=== PATIENT | male | born 1990 | race Caucasian/White ===

== ENCOUNTER 2024-12-15 03:01 | Day surgery (SDC) | payer BC, SELFPAY ==
[2024-12-09 12:48] VITALS: BMI 34.8
--- NOTE | 2024-12-09 12:55 | PC.NURSE ---
Report to the Outpatient Waiting Room, entrance under the green pavilion located off [facility], at time __11:00am on date __12/15/24 . Planned Procedure Time: __1:00pm .? Time changes happen often and if your time is changed the preop area will call you the afternoon before. - You and your visitor will be asked to self-screen and do not enter if you have any COVID symptoms. Please call surgeon if you need to reschedule. - A mask is optional within the hospital at this time. Patients may have clear liquids (water, carbonated beverages, clear teas, apple juice) until 3 hours prior to surgery with a maximum of 20 ounces. - No food from midnight until time of surgery and no smoking, or chewing tobacco (or any form of nicotine). No chewing gum, candy or mints. Take only the following medications with a SIP of water on the morning of surgery: ___None DO NOT STOP ANY OF YOUR OTHER PRESCRIPTION MEDICATIONS PRIOR TO SURGERY EXCEPT THE FOLLOWING Hold all vitamins and supplements for 3 days per anesthesiologist. Date of last dose is 12/11/24 Medications to discontinue per physician None Date to take last dose None Please no make-up, nail rwandan, hairspray, perfume, deodorant, or body powder the day of surgery.? No jewelry (including any body piercings) or valuables the day of surgery, leave them at home.? Please take a shower or bath the night before, or the morning of, surgery with an antibacterial soap.? Wear comfortable, loose fitting clothing.? - Jewelry must be removed prior to entering the operating room.? Rings and piercings that are not removed may be cut off. - The hospital will not accept responsibility for valuables.? - Please leave all valuables, including medications, at home the day of surgery. If you are going home after surgery, a licensed commercial relief driver must drive you home.? - NO public transportation without another adult if you receive anesthesia. - We recommend that an adult stay with you for 24 hours following discharge. - We also recommend that you do not drive, make important decision, drink alcoholic beverages, or take any drugs that were not prescribed by your health care provider for at least 24 hours after your discharge time. Follow any additional instructions given to you from your surgeon. Telephone instructions given to __Patient and asked if any additional questions and then verbalized understanding. Patient advised to call surgeon office or pre surgery nurse liaison [phone] if any additional questions.
[2024-12-15] VITALS (9 sets, daily range): BP systolic 99–115; BP diastolic 65–79; PULSE 68–86; RESP 12–20; TEMP 36.1–36.2; O2SAT 95–99
--- OUTSIDE RECORDS SUMMARY | 2024-12-15 03:05 | XMS_ITS | Encounter Summary ---
Author Organization [facility] Care Team Providers Care Referral Rn Name Role Phone Trey Yin PAC Primary Care Provider [phone] Julianna Fox APRN, [facility] Unavailable Emeterio Koch PAC Unavailable [phone] Encounter Details Date Type Department Care Team (Latest Contact Info) Description 12/14/2024 Travel Social History Tobacco Use Types Packs/Day Years Used Date Smoking Tobacco: Never Smokeless Tobacco: Never Alcohol Use Standard Drinks/Week Comments Never 0 (1 standard drink = 0.6 oz pur e alcohol) [facility] Utilities Answer Date Recorded In the past 12 months has e electric, gas, oil, or water company threatened to shut off services in your home? No 04/13/2024 Social Connection and Isolat ion Panel [NHANES] Answer Date Recorded In a typical week, how many times do you talk on the phone with family, friends, or neighbors? More than three times a week 04/13/2024 How often do you get togethe r with friends or relatives? Three times a week 04/13/2024 How often do you attend chur ch or sikhism services? More than 4 times per year 04/13/2024 Do you belong to any clubs o r organizations such as druze groups, unions, fraternal or athletic groups, or school groups? Yes 04/13/2024 How often do you attend meet ings of the clubs or organizations you belong to? More than 4 times per year 04/13/2024 Are you , , di vorced, , never , or living with a partner? 04/13/2024 AUDIT-C Answer Date Recorded Q1: How often do you have a drink containing alcohol? Never 04/13/2024 Q2: How many drinks containi ng alcohol do you have on a typical day when you are drinking? Patient does not drink Q3: How often do you have si x or more drinks on one occasion? Never 04/13/2024 Overall Financial Resource Strain (CARDIA) Answe r Date Recorded How hard is it for you to pa y for the very basics like food, housing, medical care, and heating? Somewhat hard 04/13/2024 PHQ-2 Answer Date Recorded Total Score - Questions 1-9 18 10/2024 [facility] - Occupational Stress Questionnaire Answer Date Recorded Do you feel stress - tense, restless, nervous, or anxious, or unable to sleep at night because your mind is troubled all the time - these days? Only a little 04/13/2024 Exercise Vital Sign Answer Date Recorde d On average, how many days pe r week do you engage in moderate to strenuous exercise (like a brisk walk)? 4 days 04/13/2024 On average, how many minutes do you engage in exercise at this level? 30 min 04/13/2024 Hunger Vital Sign Answer Date Recorded Within the past 12 months, y ou worried that your food would run out before you got the money to buy more. Never true 04/13/20 24 Within the past 12 months, t he food you bought just didn't last and you didn't have money to get more. Never true 04/13/2024 PRAPARE - Transportation Answer Date Re corded In the past 12 months, has l ack of transportation kept you from medical appointments or from getting medications? No 08/2023 In the past 12 months, has l ack of transportation kept you from meetings, work, or from getting things needed for daily living? No 04/13/2024 Housing Stability Vital Sign Answer Reymundo e Recorded In the last 12 months, was t here a time when you were not able to pay the mortgage or rent on time? Yes 04/13/2024 Number of Times Moved in the Last Year Not on fi le 04/13/2024 At any time in the past 12 m [facility], were you homeless or living in a group home (including now)? No 04/13/2024 Education Answer Date Recorded What is the highest level of school you have completed or the highest degree you have received? Some college, no degree 09/07/2022 Sexually Active Control Partners Comments Yes None Sex and Gender Information Value Date Recorded Sex Assigned at Not on file Legal Sex Male 11:03 PM CDT Gender Identity Not on file Sexual Orientation Not on file documented as of this encounter Functional Status * Question Answer Date of Assessment Author Little interest or pleasure in doing things Nearly every day 12/14/2024 4:00 PM CDT Jenni Palacios LCSW Feeling down, depressed, or hopeless Nearly every day 12/14/2024 4:00 PM CDT Jenni Palacios LC SW * Over the past 2 weeks, how often have you been bothered by any of the following problems? Question Answer Date of Assessment Author Patient Health Questionnaire -2 Score 6 12/14/2024 4:00 PM CDT Jenni Palacios LC SW documented as of this encounter Plan of Treatment Upcoming Encounters Date Type Department Care Team (Latest Contact Info) Description 12/26/2024 1:45 PM CDT [facility] [place] [address] [place] [address] Trey Yin PAC [address] [place] [address] 12/29/2024 4:15 PM CDT [facility] [address] [place] [phone] Jenni Palacios LCSW [address] [place] [address] Discharge Disposition: Discharged to home or Selfcare documented as of this encounter Visit Diagnoses Not on filedocumented in this encounter Additional Health Concerns Assessment Noted Time PHQ-9 Depression Total Score: 18 025 4:00 PM CDT documented as of this encounter Care Teams Referral Rn Relationship Specialty Start Date End Date Trey Yin, PAC [address] [place] [phone] PCP - General Physician Auxiliary Operator 06/04/22 Julianna Fox APRN, [facility] [address] [place] [address] Nurse Practitioner Advanced Practice Nurse 03/11/23 Emeterio Koch, PAC [address] [place] [address] Physician Auxiliary Operator Physician Auxiliary Operator 05/12/24 documented as of this encounter
--- OUTSIDE RECORDS SUMMARY | 2024-12-15 03:05 | XMS_ITS | Encounter Summary ---
Author Organization [facility] Address [address] [place] [address] Care Team Providers Care Vibratory Pile Driver Name Role Phone Unavailable Primary Care Provider Unavailabl e Encounter Details Date Type Department Care Team (Late st Contact Info) Description 11/25/2019 Lab Requisition [facility] [address] [place] [address] Rivera Murillo MD Cough Social History Tobacco Use Types Packs/Day Years Used Date Smoking Tobacco: Never Assessed Sex and Gender Information Value Date Recorded Sex Assigned at Not on file Legal Sex Male 5:16 PM CDT Gender Identity Not on file Sexual Orientation Not on file documented as of this encounter Plan of Treatment Not on file documented as of this encounter Procedures Procedure Name Priority Date/Time Associated Diagnosis Comments SARS-COV-2 (COVID-19) IN HOUSE Routine 11/25/2019 11:30 AM CDT Cough documented in this encounter Results * SARS-COV-2 (COVID-19) IN HOUSE (11/25/2019 11:30 AM CDT) COVID-19 PCR Not detected Not detected, Invalid 11/26/2019 6:30 AM CDT [facility] Microbiology SPECIMEN FROM NASOPHARYNGEAL STRUCTURE / Unknown Collection / Unknown 11/25/2019 11:30 AM CDT 11/25/2019 7:39 PM CDT Narrative [facility] - 11/26/2019 6:30 AM CDT This Real Time RT-PCR assay was developed and its performance characteristics determined by [facility]. This test has been authorized by the Food and Drug administration (FDA)under an Emergency Use Authorization (EUA). This test has been validated in accordance with the FDA's guidance document Policy for Diagnostic Testing in Laboratories Certified to perform High Complexity Testing under CLIA prior to Emergency Use Authorization for Coronavirus Disease-2019 during the Public Health Emergency issued on September 10, 2019. FDA independent review of this validation is pending. This test is only authorized for the duration of time the declaration that circumstances exist justifying the authorization of emergency use of in vitro diagnostic tests for detection of SARS-CoV-2 virus and/or diagnosis of COVID-19 infection under section 564(b)(1) of the Act, 21 U.S.C 360bbb-3 (b)(1), unless the authorization is terminated or revoked sooner. us Rivera Murillo MD LAB - MICROBIOLOGY ORDERABL ES Final Result [facility] [address] [place], [place] [address], [facility] [phone] documented in this encounter Visit Diagnoses Diagnosis Cough documented in this encounter Additional Health Concerns Infection Onset Date Last Indicated Resolved Time COVID-19 Under Investigation 12/09/2019 12/09/2019 12/10/2019 6:40 AM CDT documented as of this encounter
--- OUTSIDE RECORDS SUMMARY | 2024-12-15 03:05 | XMS_ITS | Referral Summary ---
Author Organization [address] Address [address] [place] [phone] Care Team Providers Care Internal Audit Manager Name Role Phone Evangelista hCester Primary Care Provider [phone] Allergies No known active allergies Medications benzonatate (TESSALON) 100 mg capsuleIndicati ons:Cough Take 1 capsule (100 mg total) by mouth every 8 (eight) hours 21 capsule 05/22/2020 Active Active Problems No known active problems Social History Tobacco Use Types Packs/Day Years Used Date Smoking Tobacco: Never Tobacco Cessation:Counseling Given: No Alcohol Use Standard Drinks/Week Comments Never 0 (1 standard drink = 0.6 oz pur e alcohol) AUDIT-C Answer Date Recorded Q1: How often do you have a drink containing alc ohol? Never 05/01/2020 Average Number of Drinks Not on file 020 Frequency of Binge Drinking Not on file 04/13 Sex and Gender Information Value Date Recorded Sex Assigned at Not on file Legal Sex Male 3:14 PM HOLTER TECHNICIAN Gender Identity Not on file Sexual Orientation Not on file Last Filed Vital Signs Vital Sign Reading Time Taken Comments Blood Pressure 116/79 05/22/2020 1:00 PM HOLTER TECHNICIAN Pulse 90 05/22/2020 1:00 PM HOLTER TECHNICIAN Temperature 37 C (98.6 F) 05/22/2020 1:00 PM HOLTER TECHNICIAN Respiratory Rate 16 05/22/2020 11:45 AM HOLTER TECHNICIAN Oxygen Saturation 97% 05/22/2020 1:00 PM HOLTER TECHNICIAN Inhaled Oxygen Concentration - - Weight 113.4 kg (250 lb) 05/22/2020 11:45 AM HOLTER TECHNICIAN Height 175.3 cm (5' 9) 05/22/2020 11:45 AM HOLTER TECHNICIAN Body Mass Index 36.92 05/22/2020 11:45 AM HOLTER TECHNICIAN Plan of Treatment Not on file Insurance [facility] Care Teams Internal Audit Manager Relationship Specialty Start Date End Date Evangelista Cehster PA [address] [facility] [address] [place] [address] PCP - General 05/01/20
--- OUTSIDE RECORDS SUMMARY | 2024-12-15 03:05 | XMS_ITS | Clinical Summary ---
Author Organization [facility] Address [address] [place] [address] Care Team Providers Care Rock Breaker Name Role Phone Unavailable Primary Care Provider Unavailabl e Source Comments [facility],non-owned Affiliates and Associated Physician Practices is amultiple site organization consisting of ambulatory clinics and hospital sitesin [place], [place], [place] and [place]. This disclosure is being madepursuant to the Care Everywhere program and may not contain all information available regarding this patient. Last updated 18.[employer] Social History Tobacco Use Types Packs/Day Years Used Date Smoking Tobacco: Never Assessed Sex and Gender Information Value Date Recorded Sex Assigned at Not on file Legal Sex Male 5:16 PM CDT Gender Identity Not on file Sexual Orientation Not on file Plan of Treatment Health Maintenance Due Date Last Done Comments HIV SCREENING 2005 HEPATITIS C SCREENING 06/04/2008 DTAP/TDAP/TD VACCINES (1 - Tdap) 2009 HEPATITIS B VACCINE (1 of 3 - 19+ 3-dose series) 2009 COVID-19 VACCINE ( - 2023-2 5 season) 2024 DEPRESSION SCREENING 07/13/2024 INFLUENZA VACCINE (Season Ended) 2025 ZOSTER VACCINE (1 of 2) 2040 HIB VACCINE Aged Out No longer eligi ble based on patient's age to complete this topic HPV VACCINE Aged Out No longer eligi ble based on patient's age to complete this topic MENINGOCOCCAL (Group B) VACC INE SHARED DECISION-MAKING Aged Out No longer eligibl e based on patient's age to complete this topic MENINGOCOCCAL GROUPS A/C/Y/W VACCINE Aged Out No longer eligible b ased on patient's age to complete this topic PNEUMOCOCCAL VACCINE Aged Out No long er eligible based on patient's age to complete this topic Insurance ANTHEM ANTHEM ANTHEM ANTHEM ANTHEM ANTHEM
--- OUTSIDE RECORDS SUMMARY | 2024-12-15 03:05 | XMS_ITS | Encounter Summary ---
Author Organization [facility] Address [address] [place] [address] Phone Care Team Providers Care Zigzag Appliquer Name Role Phone Trey Yin PAC Primary Care Provider [phone] Julianna Fox APRN, BLOCK HANDLER Unavailable Emeterio Koch PAC Unavailable [phone] Reason for Visit * Reason Comments Patient Intake * Auth/Cert (Routine) Specialty Diagnoses / Procedures Referred By Alexa t Referred To Contact Referral ID Status Reason Start Date Expiration Date Visits Re quested Visits Authorized [id number] 1 1 Encounter Details Date Type Department Care Team (Latest Contact Info) Description 12/14/2024 4:00 PM CDT Outpatient Clinic [facility] [address] [place] [address] Krystin Landry, [facility] [address] [place] [address] Moderate episode of recurrent major depressive disorder (HCC) Discharge Disposition: Discharged to home or Selfcare Social History Tobacco Use Types Packs/Day Years Used Date Smoking Tobacco: Never Smokeless Tobacco: Never Alcohol Use Standard Drinks/Week Comments Never 0 (1 standard drink = 0.6 oz pur e alcohol) [facility] Utilities Answer Date Recorded In the past 12 months has [employer], gas, oil, or water company threatened to [...] often do you attend chur ch or christian services? More than 4 times per year 04/13/2024 Do you belong to any clubs o r organizations such as restoration groups, unions, fraternal or athletic groups, or [...] Recorded Total Score - Questions 1-9 18 06/0 10/2024 [facility] Answer Date Recorded [...] any time in the past 12 m [facility], were you homeless or living in a mcc (including now)? No 04/13/2024 Education Answer Date [...] Nearly every day 12/14/2024 4:00 PM CDT Krystin Landry LCSW Feeling down, depressed, or hopeless Nearly every day 12/14/2024 4:00 PM CDT Krystin Landry LC SW * Over the past 2 weeks, how often have you been bothered by any of the following problems? Question Answer Date of Assessment Author Patient Health Questionnaire -2 Score 6 12/14/2024 4:00 PM CDT Krystin Landry LC SW documented as of this encounter Patient Instructions * Patient Instructions* Krystin Landry LCSW - 12/14/2024 4:00 PM CDT Crisis Resources In-Home, Mental Health Crisis Assessment [facility] Crisis Intervention Team?[phone] ([facility] Crisis Intervention Team?.. [phone] ([place]) [facility] Available for individual, family, or friend for in-home assessment of mental health issues Crisis Stabilization- Residential 24-hour or short-term supervised care at a facility. Available for persons 18 and older, who are experiencing a mental health crisis and do not need hospitalization. [facility] provides 24-hour short-term supervised care for persons aged 18 years and older experiencing an acute psychiatric crisis that does not require hospitalization. The average length of stay is 14 days. Admission to our crisis unit is voluntary; we only accept those individuals who choose to come to the unit. The facility is not prepared to work with persons who may be acutelysuicidal or homicidal or who are experiencing serious medical problems or complications. The unit is staffed with nurses and behavioral health technicians and is not a hospital. During their stay on the unit, clients spend time in groups that meet four or more times a day. Thegroups provide education on topics helpful to individuals in crisis and clients are expected to attend and to participate actively. [facility] will provide a safe and supportive environment conducive to achieving stability. No alcohol or drugs are allowed in the unit. All medications are dispensed by [facility] nurses at appropriate times. No visitors are allowed on the unit but there is a phone available for clients to use and make calls. Persons may refer themselves for crisis residential/stabilization services and may be referred by hospitals, police departments, mental health agencies, social service agencies, and families. [facility] ?.....? .[phone] [facility] ?.???..[phone] Brief Crisis Phone Counseling Behavioral Health Response (BHR)?[phone] / [phone] ([place]) CARES Line (Medicaid patients) ?..[phone] If non-Medicaid patient, the caller will be referred to a local service provider Emergency Sites for Mental Health Assessment and Treatment Behavioral Health Urgent Care [facility]gent [facility] (5yrs old to adult) [address] [facility] [address] [place] [address] Thursday - Thursday 9:00 am - 7:00 pm *Last patient seen at 6:00 pm Hospitals with Inpatient Psychological Services for Children and/or Adolescents and Adults [facility] (also has substance use treatment for adults) (adolescent, adult) [address] [place] [address] [facility] (children, adolescents, adult) after business hours [phone] [place] [address]. [facility] Behavioral Health (children, adolescents, adult) [address] [place] [address] [facility] (also has substance use treatment for adults) (children, adolescents, adult) Phone: or [phone] [place] [address] [facility] (adolescent, adult) Phone: or [phone] [address] [place] [address] Hospitals with Inpatient Psychological Services for Adults only [facility] (adult, geriatric) [address] [place] [address] [facility] Health (adult) [address] [place] [address] [facility] (adult) Phone: or [phone] [address] [place] [address] [facility] (geriatric only) Phone: or [phone] [address] [place] [address] [facility] (adult, geriatric) [address] Hotline Numbers National Suicide Prevention Hotline: ?..?.3-021-330-TALK (2055) or [address] [place] Sexual Assault Hotline?..?.?5-870-020[facility] (9022) [facility] Sexual Assault Victims Support?..1-690.404.5158 [facility] Child Abuse Hotline?.1-266.521.4763 Domestic Violence Hotline?.?.0-439-386-S DEANNA (6455) [facility] Lifeline?.? Trans Lifeline?.? LGBTQ Partner Abuse & Sexual Assault Line . .1- [phone] [facility] including support for opioids or other substances.? Crisis Text Line???..?.?.? Text the word help to 638721 [facility] Text Line for service referrals.?.?. Text the word help to 717858 [facility]?5-816-932-79 53 [facility] Warmline? 9a-9p/7 days a week [facility] Warmline?..2-516-783-6860 documented in this encounter Progress Notes * Krystin Landry LCSW - 12/14/2024 4:00 PM CDT [facility] INITIAL EVALUATION Name: Slick Quesada Age: 34 y.o. Date of : 1990 Date of service: 12/14/2024 Start time: 4:00 pm End time: 5:00 pm DIAGNOSIS: 1. Moderate episode of recurrent major depressive disorder (HCC) [facility] CLINICAL: PSYCHOTHERAPY-COUNSELING REFERRAL ORDER PRIMARY CARE PHYSICIAN: AAKASH Garcia CHIEF COMPLAINT/PRESENTING PROBLEM: What are the main concerns which brought you to treatment at this time?: Depression: concentration difficulties decreased motivation decreased participation in activities of daily living fatigue/loss of energy loss of interest/pleasure in activities low self esteem/self image mood regulation difficulties negative automatic thoughts/intrusive thoughts recurrent thoughts of /dying sleep difficulties (too much or too little) suicidal ideation Recent examples of current difficulty include: Slick is a 34 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 He has a knee that has been giving him problems and he has been off work from Apr 2024 to Aug 2024; he's went back to work in Aug after some treatment. He is having financial strain as well. Slick says that even though he would never do it, he feels that suicidal thoughts give him relief in thinking that there would be an escape; he describes it somewhat like a fantasy. I am not impulsive. I would not do that to my family. He shared that whenever financial stress occurs, he finds himself thinking about it. He and his have 4 children and have had to give up sports activities because his income has been taking a hit for the last 2 years. MENTAL STATUS EXAMINATION: Orientation: Oriented to person, place, time and situation Appearance: In no apparent distress Behavior: cooperative open Figity Speech: Communicative, spoke clearly in sentences Mood: congruent to situation Affect: appropriate to context Thought Process: Clear and well linked Thought Content: Excessive guilt Perception: No hallucinations Memory: Reported: Short and jail memory intact Attention: Able to focus during the interview Insight/Judgement: Normal insight and judgement FUNCTIONAL ASSESSMENT: Can the patient perform Activities of Daily Living (ADL'S)?: Patient is able to complete ADL's independently Does patient have the ability and the capacity to respond to treatment?: Yes RISK ASSESSMENT: Suicidal Ideation: There is no current suicidal ideation.. -[place]- Suicide Severity Rating Scale: Risk Stratification: Suicide Risk Stratification: Low Suicide Risk Risk Assessment: Suicidal ideation (Most Severe in Past Month): Wish to be Homicidal Ideation: There is no history of homicidal ideation.. Self Harm: No. PSYCHIATRIC/PSYCHOLOGICAL HISTORY: (include any history of behavioral health difficulties, behavioral health treatment, or inpatient hospitalizations) No hospitalizations. Is prescribed Prozac by PCP about weeks ago. PCP is aware of Slick's suicidal thoughts. Previous mental health treatment: No. SOCIAL HISTORY: Current relationship status: Currently living with Self, Spouse, and four children. Will family be involved in treatment? No Social supports, hobbies, and activities: is main support. Slick says he has no friends. Are there any languages other than Egyptian spoken in the home? No Are there any Lutheran or Cultural Considerations that may impact treatment in any way? No FAMILY OF ORIGIN: Parent(s)/Caregiver(s): Biological parents Place of /where raised. [place] Sibling(s): Yes- one brother Family mental health and substance abuse history: Unknown DEVELOPMENTAL HISTORY: Pertinent neurodevelopmental considerations: Attention Deficit/Hyperactivity Disorder COMMUNICATION: Are there any barriers to communication: None Identified EDUCATIONAL/EMPLOYMENT HISTORY: Currently in school? No, highest level of education completed: Some college Currently employed? Yes [employer] HISTORY OF TRAUMA/ABUSE: Are you a current victim or perpetrator of abuse, trauma, or exploitation? Current: No Reported Trauma Past: No Reported Trauma PAST AND CURRENT SUBSTANCE USE: Tobacco: No Alcohol: No Other substances: No Substance use treatment?: No. LEGAL HISTORY: Pertinent legal history: No Does patient have access to firearms?: Yes- Secured FINANCIAL STATUS: The following financial stressors were identified: None SERVICE HISTORY: No DAILY ROUTINE: Sleep: significant daytime fatigue and tired all the time approximate hours of sleep per night?: varies Appetite/Meals: Balanced diet Exercise: Daily Goes to gym TREATMENT RECOMMENDATIONS: Recommendations for initial treatment plan: Return for next available follow up appointment MEDICAL HISTORY: Allergies: No Known Allergies Current medications: Current Outpatient Medications Medication Sig Dispense Refill Ascorbic Acid (VITAMIN C PO) Take by mouth. famotidine (PEPCID) 20 MG Tablet Take 1 Tablet by mouth 2 times daily. 180 Tablet 1 FLUoxetine (PROzac) 10 MG Capsule Take 1 Capsule by mouth daily. 90 Capsule 0 Multiple Vitamin (MULTI-VITAMIN PO) Take by mouth every morning. Probiotic Product (PROBIOTIC DAILY PO) Take by mouth. VITAMIN D PO Take by mouth. No current facility-administered medications for this visit. Medical History: Past Medical History Positives Diagnosis Date Duodenal ulcer Erosive esophagitis GERD (gastroesophageal reflux disease) IBS (irritable bowel syndrome) Vitamin D deficiency Surgical History: Past Surgical History: Procedure Laterality Date COLONOSCOPY N/A 11/28/2019 Procedure: COLONOSCOPY, negative terminal ileum, random RIGHT colon biopsies, SPLENIC FLEXURE POLYP-BIOPSIED,; Surgeon: Joss Bazzi DO; Location: [facility]; Service: Gastroenterology HAND SURGERY Right UPPER GASTROINTESTINAL ENDOSCOPY N/A 12/12/2019 Procedure: EGD, duodenitis with ulcers-biopsies taken, debra test, gastritis, esophagitis-biopsies taken, haital hernia; Surgeon: Joss Bazzi DO; Location: [facility]; Service: Gastroenterology UPPER GASTROINTESTINAL ENDOSCOPY N/A 04/11/2020 Procedure: EGD - HEALED DUODENAL ULCER, HEALED ESOPHAGITIS,; Surgeon: Joss Bazzi DO; Location:[facility]; Service: Gastroenterology History of Head injury? No Any other medical concerns? Knee surgery coming up. Labs: Lab Results Component Value Date WBC 6.02 01/19/2023 RBC 4.38 (L) 01/19/2023 HEMOGLOBIN 13.9 01/19/2023 MCV 94.3 01/19/2023 MCH 31.7 01/19/2023 MCHC 33.7 01/19/2023 PLATELETCNT 270 01/19/2023 RDW 12.0 01/19/2023 LYMPHOCYTES 34.9 01/19/2023 RELEOS 2.5 01/19/2023 RELBAS 0.7 01/19/2023 ANC 3.20 01/19/2023 MONOCYTES 0.53 01/19/2023 EOSINOPHILS 0.15 01/19/2023 BASOPHILS 0.04 01/19/2023 Lab Results Component Value Date SODIUM 139 01/19/2023 POTASSIUM 4.0 01/19/2023 CHLORIDE 102 01/19/2023 CO2VEN 25 01/19/2023 ANIONGAP 16.0 01/19/2023 GLUCOSE 102 (H) 01/19/2023 BUN 9 01/19/2023 CREATININE 1.02 01/19/2023 TOTALPROTEIN 7.4 01/19/2023 ALBUMIN 4.4 01/19/2023 CALCIUM 9.4 01/19/2023 TBIL 0.3 01/19/2023 SGPTALT 43 (H) 01/19/2023 ALKALINEPHO 93 01/19/2023 GFRNA >60 01/19/2023 GFRA >60 01/19/2023 No results found for: RPR Lab Results Component Value Date TSH 1.190 07/11/2020 No results found for: ETHANOL No results found for: SALICYLATE No results found for: ACETAMINOPHE KRYSTIN LANDRY LCSW documented in this encounter Plan of Treatment Upcoming Encounters Date Type Department Care Team (Latest Contact Info) Description 12/26/2024 1:45 PM CDT Office Visit [facility] - [place] [address] [place] [address] Trey Yin PAC [address] [place] [address] 12/29/2024 4:15 PM CDT Outpatient Clinic Visit [facility] Behavioral Health Services [address] [place] [id number] Krystin Landry LCSW [address] [place] [address] Discharge Disposition: Discharged to home or Selfcare documented as of this encounter Visit Diagnoses Diagnosis Moderate episode of recurrent major depressive disorder (HCC) documented in this encounter Additional Health Concerns Assessment Noted Time PHQ-9 Depression Total Score: 18 12/14/ 025 4:00 PM CDT documented as of this encounter Care Teams Zigzag Appliquer Relationship Specialty Start Date End Date Trey Yin, PAC [address] [place] [id number] PCP - General Physician Aerial Sprayer 06/04/22 Julianna Fox APRN, [facility] [address] [place] [address] Nurse Practitioner Advanced Practice Nurse 03/11/23 Emeterio Koch, [facility] [address] [place] [address] Physician Aerial Sprayer Physician Aerial Sprayer 05/12/24 documented as of this encounter
--- OUTSIDE RECORDS SUMMARY | 2024-12-15 03:05 | XMS_ITS | Clinical Summary ---
Author Organization [facility] Address [address] [place] [address] Phone Care Team Providers Care Loftsman Name Role Phone Trey Yin PAC Primary Care Provider [phone] Julianna Fox APRN, FREIGHT SOLICITOR Unavailable Emeterio Koch PAC Unavailable [phone] Allergies No known active allergies Medications Multiple Vitamin (MULTI-VITAMIN PO) Take by mouth every morning. Active famotidine (PEPCID) 20 MG TabletIndicatio ns:Epigastric pain Take 1 Tablet by mouth 2 times daily. 180 Tablet 1 02/11/20 23 Active VITAMIN D PO Take by mouth. Ac tive Ascorbic Acid (VITAMIN C PO) Take by mouth. Active Probiotic Product (PROBIOTIC DAILY PO) Take by mouth. Activ e FLUoxetine (PROzac) 10 MG CapsuleIndicati ons:Moderate episode of recurrent major depressive disorder (HCC) Take 1 Capsule by mouth daily. 90 Capsule 11/24/19 25 Active Psyllium (METAMUCIL PO) Take by mouth. 025 Discontin ued(Med List Clean Up) probiotic (VSL#3) Pack 1 Packet by Per NG tube route daily. 025 Discontin ued(Med List Clean Up) pantoprazole (PROTONIX) 40 MG Tablet Delayed ResponseIndicat ions:Epigastric pain,Gastroesop hageal reflux disease, unspecified whether esophagitis present Take 1 Tablet by mouth daily. 90 Tablet 2 03/11/20 23 025 Discontin ued(Med List Clean Up) albuterol 108 (90 Base) MCG/ACT Aerosol Solution INHALE 1 PUFF BY MOUTH EVERY 6 HOURS NEEDED FOR SHORTNESS OF BREATH 07/12/20 23 025 Discontin ued(Med List Clean Up) methylPREDNISol one (Medrol) 4 MG Tablet Therapy PackIndications :Acute pain of left knee Use as per instructions on package. 21 Tablet 04/13/20 24 025 Discontin ued(Thera py completed ) Active Problems Problem Noted Date Diagnosed Date Moderate episode of recurrent major depressive d isorder 12/14/2024 Irritable bowel syndrome with diarrhea 0 Left lower quadrant pain 12/27/2019 Duodenal ulcer GERD (gastroesophageal reflux disease) Encounters Date Type Department Care Team Description 12/14/2024 4:00 PM CDT Outpatient Clinic Visit [facility] [address] [place] [phone] Jenni Palacios, STEEL WELDER Moderate episode of recurrent major depressive disorder (HCC) Discharge Disposition: Discharged to home or Selfcare 12/14/2024 Travel 11/23/2024 7:30 AM CDT Office Visit [facility] - [place] [address] [place] [address] Trey Yin PAC Moderate episode of recurrent major depressive disorder (HCC) (Primary Dx); Suicidal ideation; Acute pain of left knee Discharge Disposition: Discharged to home or Selfcare 11/23/2024 Travel 10/31/2024 8:55 AM CDT Urgent Care Visit [facility] [place] [address] [place] [address] Ashlie Fuentes APRN, BRIANA Strep throat (Primary Dx); Sore throat Discharge Disposition: Discharged to home or Selfcare 10/31/2024 Travel 10/05/2024 Documentation Only [facility] [address] [place] [id number] Fabiana Rendon A, PT Acute pain of left knee (Primary Dx) from Last 3 Months Immunizations Immunization Administration Dates Next Due DTAP VACCINE 03/06/1995,12/28/1991,1990 DTP Vaccine 05/19/1991,03/17/1991 Hepatitis B Vaccine, Pediatric/adolescent 05/16/2005 Hib Vaccine,unspecified Formulation 12/11,08/31/1991,05/19/1991,1990 Inactivated Polio Vaccine 03/06/1995,12/28/1991, 1990 MMR Vaccine 03/06/1995,08/31/1991 OPV 05/19/1991,03/17/1991 TD VACCINE 05/16/2005 Family History Medical History Relation Name Comments No Known Problems Brother Florencio Hypertension Father Isidro Diabetes Maternal Grandfather Cancer Maternal Grandmother lung CA - heavy smoker Diabetes Mother Sonia Migraines Mother Sonia Osteoarthritis Mother Sonia No Known Problems Paternal Grandfather Relation Name Status Comments Brother Florencio Alive Father Isidro Alive Maternal Grandfather Alive Maternal Grandmother Mother Sonia Alive borderline hypo glycemic Paternal Grandfather Alive Paternal Grandmother Social History Tobacco Use Types Packs/Day Years Used Date Smoking Tobacco: Never Smokeless Tobacco: Never Tobacco Cessation:Counseling Given: Not Answered Alcohol Use Standard Drinks/Week Comments Never 0 (1 standard drink = 0.6 oz pur e alcohol) [facility] [employer] Answer Date Recorded In the past 12 months has [employer], gas, oil, or water [email or web address] threatened to shut off services in your [...] often do you attend chur ch or roman catholic services? More than 4 times per year 04/13/2024 Do you belong to any clubs o r organizations such as zoroastrian groups, unions, fraternal or athletic groups, or [...] Total Score - Questions 1-9 18 10/2024 [facility] of Occupat ional Health - Occupational Stress Questionnaire Answer Date Recorded [...] any time in the past 12 [facility], were you homeless or living [...] Sign Reading Time Taken Comments Blood Pressure 132/78 11/23/2024 7:28 AM CDT Pulse 95 11/23/2024 7:28 AM CDT Temperature 37.8 C (100 F) 11/23/2024 7:28 AM CDT Respiratory Rate 18 11/23/2024 7:28 AM CDT Oxygen Saturation 96% 11/23/2024 7:28 AM CDT Inhaled Oxygen Concentration - - Weight 109.3 kg (241 lb) 11/23/2024 7:28 AM CDT Height 175.3 cm (5' 9) 06/14/2024 10:03 AM EPIC KALEIDOSCOPE ANALYST Body Mass Index 35.59 06/14/2024 10:03 AM EPIC KALEIDOSCOPE ANALYST Plan of Treatment Upcoming Encounters Date Type Department Care Team (Latest Contact Info) Description 12/26/2024 1:45 PM CDT Office Visit [facility] - [place] [address] [place] [address] Trey Yin, PAC [address] [place] [address] 12/29/2024 4:15 PM CDT [facility]patient [facility] [address] [place] [phone] Jenni Palacios, STEEL WELDER [address] [place] [address] Discharge Disposition: Discharged to home or Selfcare Health Maintenance Due Date Last Done Comments Hepatitis B Immunization (2 of 3 - 3-dose series) 06/13/2005 05/16/2005 SARS-COV-2 Immunization ( - season) 2024 Influenza Immunization (Season Ended) 2025 DTaP/Tdap/Td Immunization (7 - Td or Tdap) 10/27/2026 10/27/2016, 05/16/2005, 03/06/1995, Additional history exists Respiratory Syncytial Virus (RSV) Immunization (Adult) (1 - 1-dose 75+ series) 2065 Hepatitis C Virus (HCV) Screening Completed 07/12/2020 Human Papillomavirus (HPV) Immunization Aged Out No longer eligible based on patient's age to complete this topic Meningococcal Immunization (ACWY) Aged Out No longer eligible based on patient's age to complete this topic Pneumococcal Immunization Combined Aged Out No longer eligible based on patient's age to complete this topic Rotavirus Immunization Aged Out No lo nger eligible based on patient's age to complete this topic Procedures Procedure Name Priority Date/Time Associated Diagnosis Comments POC GROUP A STREP BY MOLECULAR Routine 10/31/2024 9:09 AM CDT Sore throat HEPATITIS PANEL ACUTE (AHP) Routine 07/12/2020 1:51 PM EPIC KALEIDOSCOPE ANALYST Elevated liver enzymes from Last 3 Months or Most Recently Relevant to Health Maintenance Results * (ABNORMAL) POC GROUP A STREP BY MOLECULAR (10/31/2024 9:09 AM CDT) STREP A DNA Positive(A ) Negative, Invalid PROCEDURE CONTROL Valid 10/31/2024 9:09 AM CDT Ashlie Fuentes ASSESSMENT RN, FREIGHT SOLICITOR POINT OF CARE TEST ING (MANUAL) Final Result * HEPATITIS PANEL ACUTE (AHP) (07/12/2020 1:51 PM EPIC KALEIDOSCOPE ANALYST) HEPATITIS A IGM ANTIBODY NON DETECTED NON DETECTED [facility] ARCH [id number] A 07/12/2020 9:31 PM EPIC KALEIDOSCOPE ANALYST [facility] Comment: IGM Antibodies to HAV not detected. Does not exclude early acute or recovered HAV infection. HEP B CORE AB (IGM) NON DETECTED NON DETECTED [facility] ARCH [id number] 07/12/2020 9:31 PM EPIC KALEIDOSCOPE ANALYST [facility] Comment:IGM anti-HBC not det ected. Does not exclude the possibility of exposure to or infection with HBV. HEPATITIS B SURFACE ANTIGEN NON DETECTED NON DETECTED [facility] ARCH [id number] B 07/12/2020 9:31 PM EPIC KALEIDOSCOPE ANALYST [facility] Comment:A nonreactive test r esult does not exclude the possibility of exposure to or infection with Hepatitis B virus. A nonreactive test result in individuals with prior exposure to hepatitis B may be due to antigen levels below the detection limit of this assay or lack of antigen reactivity to the antibodies in this assay. hepatitis C antibody 0.08 <1 S/CO [facility] ARCH [id number] B 07/12/2020 9:31 PM EPIC KALEIDOSCOPE ANALYST [facility] Comment: Signal/Cutoff ratio < 0.79 is Nondetected Signal/Cutoff ratio 0.80-0.99 is Grayzone Signal/Cutoff ratio > 0.99 is Detected Supplemental assays are recommended if signal/cutoff ratio is >/=1.00. Signal/cutoff ratio result >/= 5.00 is 97% predictive of positivity for recombinant immunoblot assay (RIBA) and will be reported to the [place] Department of Public Health as required. Blood Venipuncture / Unknown 07/12/2020 1:51 PM EPIC KALEIDOSCOPE ANALYST 07/12/2020 1:51 PM EPIC KALEIDOSCOPE ANALYST Evangelista Chester [facility] ORDERABLES Fi nal Result [facility] [address] [facility] [place] [address], [place] from Last 3 Months or Most Recently Relevant to Health Maintenance Insurance [facility] Care Teams Loftsman Relationship Specialty Start Date End Date Trey Yin, PAC [address] [place] [phone] PCP - General Physician Customer Security Clerk 06/04/22 Julianna Fox APRN, FREIGHT SOLICITOR [address] [place] [address] Nurse Practitioner Advanced Practice Nurse 03/11/23 Emeterio Koch, PAC [address] [place] [address] Physician Customer Security Clerk Physician Customer Security Clerk 05/12/24
--- OUTSIDE RECORDS SUMMARY | 2024-12-15 03:05 | XMS_ITS | Encounter Summary ---
Author Organization [facility] Address [address] [place] [address] Care Team Providers Care Mill Supervisor Name Role Phone Unavailable Primary Care Provider Unavailabl e Encounter Details Date Type Department Care Team (Late st Contact Info) Description 12/09/2019 Lab Requisition [facility] [address] [place] [address] Rivera Murillo MD Cough Social History Tobacco [...] Diagnosis Comments SARS-COV-2 (COVID-19) IN HOUSE Routine 12/09/2019 1:00 PM CDT Cough documented in this encounter Results * SARS-COV-2 (COVID-19) IN HOUSE (12/09/2019 1:00 PM CDT) COVID-19 PCR Not detected Not detected, Invalid 12/10/2019 6:40 AM CDT [facility] Microbiology SPECIMEN FROM NASOPHARYNGEAL STRUCTURE / Unknown Collection / Unknown 12/09/2019 1:00 PM CDT 12/09/2019 7:12 PM CDT Narrative [facility] - 12/10/2019 6:40 AM CDT This Real Time RT-PCR assay was developed and its performance characteristics determined by [facility]. This test has been [...] LAB - MICROBIOLOGY ORDERABL ES Final Result [facility] [address] [place], [place] [address], [facility] [phone] documented in this encounter Visit Diagnoses Diagnosis Cough documented in this encounter Additional Health Concerns Infection Onset Date Last Indicated Resolved Time COVID-19 Under Investigation 12/09/2019 12/09/2019 12/10/2019 6:40 AM CDT documented as of this encounter
--- OUTSIDE RECORDS SUMMARY | 2024-12-15 03:05 | XMS_ITS | Clinical Summary ---
Author Organization [address] Address [address] [place] [phone] Care Team Providers Care Quality Control Tester Name Role Phone Evangelista Chester Primary Care Provider [phone] Allergies No known active allergies Medications benzonatate (TESSALON) 100 mg capsuleIndicati ons:Cough Take 1 capsule (100 mg total) by mouth every 8 (eight) hours 21 capsule 05/22/2020 Active Active Problems No known active problems Surgical History Surgery Date Site/Laterality Comments HAND SURGERY Social History Tobacco Use Types Packs/Day Years [...] on file Legal Sex Male 3:14 PM CONTROL DIRECTOR Gender Identity Not on file Sexual Orientation Not on file Obstetrics History Last Filed Vital Signs Vital Sign Reading Time Taken Comments Blood Pressure 116/79 05/22/2020 1:00 PM CONTROL DIRECTOR Pulse 90 05/22/2020 1:00 PM CONTROL DIRECTOR Temperature 37 C (98.6 F) 05/22/2020 1:00 PM CONTROL DIRECTOR Respiratory Rate 16 05/22/2020 11:45 AM CONTROL DIRECTOR Oxygen Saturation 97% 05/22/2020 1:00 PM CONTROL DIRECTOR Inhaled Oxygen Concentration - - Weight 113.4 kg (250 lb) 05/22/2020 11:45 AM CONTROL DIRECTOR Height 175.3 cm (5' 9) 05/22/2020 11:45 AM CONTROL DIRECTOR Body Mass Index 36.92 05/22/2020 11:45 AM CONTROL DIRECTOR Plan of Treatment Not on file Insurance [facility] Care Teams Quality Control Tester Relationship Specialty Start Date End Date Evangelista Chester PA [address] [facility] [address] [place] [address] PCP - General 05/01/20
--- NOTE | 2024-12-15 07:26 | WPDHPUPDATE1 ---
History and Physical Update Update Date/Time: 12/15/24 07:26 History and Physical has been reviewed, including an updated exam of the patient. There are NO changes in the patient's condition. Risks, benefits, and alternatives have been discussed and questions answered. Patient agrees to proceed with procedure.
[2024-12-15] MEDS: ACETAMINOPHEN 500 MG TABLET 1000 MG PO (11:30)
[2024-12-15] MEDS: LACTATED RINGERS 1,000 ML 30 ML IV CONT (11:30)
[2024-12-15] MEDS: KETOROLAC 15 MG/ML VIAL (*BKC) IV PUSH (11:30)
--- NOTE | 2024-12-15 12:40 | P.PNAN_ITS ---
Anes - Initial Pre Proc Eval Procedure: Operation Date: 12/15/24 13:00 Proposed Procedures p Left Knee Arthroscopic Lateral Release, Proceed as Indicated - Luc Rusos MD Date/Time: 12/15/24 12:40 Surgeon: Luc Russo MD Pre Op Diagnosis: Patella Chondromalacia Patient Data Age: 34 Gender: M Height: 1.75 m Weight: 107 kg Allergies Allergy/AdvReac Type Severity Reaction Status Date / Time No Known Allergies Allergy Verified 12/09/24 12:44 Home Medications ?Medication ?Instructions ?Recorded ?Confirmed ?Type ascorbic acid (vitamin C) 125 mg 125 mg PO DAILY 07/12/24 12/09/24 History capsule famotidine 20 mg tablet 20 mg PO DAILY 07/12/24 12/09/24 History multivitamin (Daily Multi-Vitamin 1 tablet PO DAILY 07/12/24 12/09/24 History tablet) pantoprazole 40 mg tablet,delayed 40 mg PO QAM 07/12/24 12/09/24 History release fluoxetine 10 mg capsule 10 mg PO QPM 12/09/24 12/09/24 History magnesium 250 mg tablet 250 mg PO DAILY 12/09/24 12/09/24 History oxycodone-acetaminophen 5 mg-325 1 - 2 tablet PO Q4-6H PRN pain #30 12/15/24 Rx mg tablet tabs Patient hx anesthesia problems: none Family hx anesthesia problems: none Results Review: All pre-operative results and documents have been reviewed as part of the pre- operative evaluation. [facility] Past Medical History Medical History (Updated 12/15/24 @ 12:41 by Jack Marquez DO) Depression Anxiety Ulcer GERD (gastroesophageal reflux disease) Social History Social History Smoking status: Never smoker Alcohol intake: never Substance use: never Do You Feel Safe in your Home?: Yes Lack of Transportation: No Lack of Food: Never True Current Housing: I Have Housing Concerned About Future Housing: No Difficulty Paying Gas/Electric Bills: No Difficulty Paying for Meds: No Currently Unemployed: No Education: High School Diploma/GED Difficulty w/ Childcare or Family Care: No Anes - Eval Final PreProcedure Day of Procedure 12/15/24 12:40 Patient weight: obese Heart: regular rate and rhythm Lungs: clear to auscultation Airway: Mallampati scale class 1 Neurological: alert and oriented Last oral intake: >/= 8 hours ASA classification: II Emergent: no Anesthetic plan: proceed Anesthesia type and monitoring: general LMA and standard monitoring Results Review: All pre-operative results and documents have been reviewed as part of the pre- operative evaluation. Informed Consent: The patient's anesthetic plan and its attendant risks and benefits were discussed with the patient/family/POA. Questions were solicited and answers provided to the satisfaction of the patient/family/POA.
[2024-12-15] MEDS: ceFAZolin 2 GM/D5W 50 ML 2 GM/50 ML BAG IVPB (13:07)
[2024-12-15] MEDS: BUPIVACAINE/EPINEPHRINE 0.5% 50 ML VIAL 20 ML INFILTRATE (13:29)
[2024-12-15] MEDS: oxyCODONE HCL (*CRX) 5 MG TAB IR PO (15:33)
--- NOTE | 2024-12-15 16:40 | P.OP_ITS ---
Procedure Note - Detailed Date of Procedure 12/15/24 Pre-op Diagnosis Patella Chondromalacia Post-op Diagnosis Other (Chondromalacia Patella with chondral defect at the distal pole, left knee.) Procedure Performed Arthroscopic lateral release and patella chondroplasty left knee. Surgeon Luc Russo MD Anesthesia General Indications Persistent reproducible crepitus and pain at the distal pole of the patella. Radiographs suggested lateral patellar facet overload. MRI showed signal change the distal pole of the patella. Findings Large chondral defect at the distal pole of the patella. Nearly full-thickness at the most distal aspect. Softening more proximally but the cartilage was otherwise intact. Another moderate partial-thickness defect at the medial aspect of the distal pole. Both of these areas were debrided to a stable rim. Evidence of subtle lateral tracking treated with lateral release using the radiofrequency probe. Mild reactive synovitis noted in the lateral gutter. No other abnormalities. Description of Procedure The patient was identified and the surgical site confirmed and signed in the preoperative holding area. Antibiotics were started per protocol, and the patient was brought to the operative room and transferred to the OR table. A general anesthetic was administered. Supine position with the operative lower extremity position in the leg mendoza after placement of a well padded tourniquet. The leg support was lowered and the contralateral limb was supported with a soft bolster. The knee was prepped and draped in the usual sterile fashion. A time-out was performed. The portal sites were marked and infiltrated with 0.5% Marcaine 20 mL. The limb was exsanguinated and the tourniquet inflated to 300 mL Hg. Standard inferolateral and inferomedial portals were established. Inflow was obtained with the saline pump. The camera was introduced. Diagnostic inspection of the joint was accomplished. The distal pole of the patella showed an obvious defect which appeared quite unstable. This was approximately 1 cm in diameter. It was debrided. After debridement with the shaver the radiofrequency probe was used to stabilize the edges. Another smaller 0.5 cm de fect was noted at the medial aspect of the distal pole. This was treated with partial chondroplasty. Distal cartilage of the patella was moderately soft. The trochlea was normal. The medial and lateral compartments were normal. There was some evidence for lateral patellar overload and maltracking which was treated with lateral release using the radiofrequency hook probe from the distal aspect of the lateral vastus lateralis to the arthroscopic portal distal lateral. Care was taken to preserve the muscle fibers. The arthroscopic instruments were removed. The tourniquet released and wounds closed with subcutaneous 4-0 Monocryl absorbable suture. Steri strips and a sterile dressing were applied. A light elastic wrap was placed. The patient was extubated and brought to the recovery room in stable condition. Estimated Blood Loss 5 Drains No Complications No immediate complications Condition Stable Disposition PACU [facility] Billing Surgery - Charge Forward: Surgery Billing
== END 2024-12-15 16:03 | disposition home or self-care (01) ==
PROVIDERS: PCP Physician Assistant; Visit Provider Orthopaedic Surgery
PROC: (CPT 29870; principal; 2024-12-15 13:00)
DX: M22.42 Chondromalacia patellae, left knee (principal); E66.9 Obesity, unspecified; Z68.35 Body mass index [BMI] 35.0-35.9, adult
CPT/HCPCS: 29873; A9270; J0690; J1100; J1885; J2250; J2405; J2704; J3010; J7120

== ENCOUNTER 2025-05-12 14:58 | Outpatient (CLI) | payer BC, SELFPAY ==
--- NOTE | ~2025-05-12 | XR_ITS ---
EXAMINATION: XR knee LT min 4V, 05/12/2025 15:25 CDT HISTORY: Other specified postprocedural states, cracking for 1 month COMPARISON: No comparisons available. Findings: No acute fracture or malalignment. No significant degenerative changes. Soft tissues unremarkable. Impression: No acute fracture or malalignment. Reviewed, dictated and finalized at location P. Impression: No acute fracture or malalignment.
== END 2025-05-12 14:59 | disposition home or self-care (01) ==
LOC: GOSHIMG 15:04
PROVIDERS: PCP Orthopaedic Surgery; Visit Provider Orthopaedic Surgery
DX: Z98.890 Other specified postprocedural states (principal)
CPT/HCPCS: 73564